=== PATIENT | female | born 1950 | race Two or more races ===

== ENCOUNTER 2024-08-28 11:00 | Outpatient (RCR) | payer MEDICARE, SELFPAY ==
--- NOTE | 2024-08-15 14:51 | PT.OIERPT ---
PT OP Initial Eval Patient Information Outpatient Physical Therapy Treatment Date: 08/15/24 Visit Reasons: Sciatica left side Medical Diagnosis: M54.32 Treatment Dx #1: Back Pain Treatment Dx #2: Left LE Pain Start of Care: 08/15/24 Date of Onset: 5 months ago Smoking Status Smoking Status: Never smoker Initial Assessment Subjective: Pt is a 74 y/o female comes into therapy reporting of back and left LE pain worsening 5 months ago. No imaging has been done thus far. 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 Pt has limitation with sitting, standing, chores, self care, cooking, cleaning, lifting, walk, and performing recreational activities. Pt ambulate with a cane or 4ww for safety. Objective: L/S AROM (in sitting): all motions are WFL except end range pain into extension Hip PROM: all motions are WFL except IR Hip MMTs: grossly 3/5 Special Test (+) slump Assessment: Pt demonstrate back pain with mobility deficits leading to difficulty with ADLs. Pt will attempt physical therapy if pain persist Pt will be refer back to provider for further consultation. Short Term and Velvet [facility] Goals 1) Decrease back pain to 2/10 in 6 wks to be able to sit and stand more than 30 mins 2) Increase L/S AROM WFL in 6 wks to be able to perform chores 3) Increase Hip MMTs grossly to 3+/5 in 6 wks to be able to walk more than 30 mins 4) Increase core strength WFL in 6 wks to be able to perform recreational activities 5) Indep with HEP Treatment Plan 1) Manual Therapy 2) Therapeutic Activities 3) Therapeutic Exercises 3) Modalities (ice, heat) Frequency and Duration: 2 x wk for 6 wks Certification Dates: 08/15/24 to 11/14/23 Procedure Charges OP PT Eval Mod Complex 30 minutes: Yes
--- NOTE | 2024-08-21 16:07 | PT.ODAYNRPT ---
PT Outpatient Daily Note OP Daily Note Outpatient Physical Therapy Treatment Date: 08/21/24 Visit Reasons: Sciatica left side Subjective: Pt reports back has been bothering her a little more these last two weeks. Objective: Please see flow sheet for ther ex list. Assessment: Pt instructed on posterior pelvic tilt, tactile cues and feedback given to achieve desired motion. Plan: Continue with POC. Length of Time (minutes) of Treatment: 30 Minutes Procedure Charges Therapeutic Exercise 30 minutes: Yes
--- NOTE | 2024-08-23 15:22 | PT.ODAYNRPT ---
PT Outpatient Daily Note OP Daily Note Outpatient Physical Therapy Treatment Date: 08/23/24 Visit Reasons: Sciatica left side Subjective: Pt's back still hurts and notice left LE pain consistent. Objective: Please see flow chart for list of ther ex performed Assessment: added heat with supine exercises which allow patient to tolerate exercises Plan: Continue with PT Length of Time (minutes) of Treatment: 30 Minutes Procedure Charges Therapeutic Exercise 30 minutes: Yes
--- NOTE | 2024-08-28 11:53 | PT.ODAYNRPT ---
PT Outpatient Daily Note OP Daily Note Outpatient Physical Therapy Treatment Date: 08/28/24 Visit Reasons: Sciatica left side Subjective: Pt's back was sore after last session. Pt feels a little better and able to help spouse out since he hurt his knee. Objective: Please see flow chart for list of ther ex performed Assessment: tolerate exercises with minimal pain; unable to stay on hotpack long due to intolerable to heat Plan: Continue with PT Length of Time (minutes) of Treatment: 30 Minutes Procedure Charges Therapeutic Exercise 30 minutes: Yes
== END 2024-09-05 23:59 | disposition home or self-care (01) ==
LOC: CPTX 11:00
PROVIDERS: PCP Family Medicine; Referring Provider Family Medicine; Visit Provider Family Medicine
DX: M54.42 Lumbago with sciatica, left side (principal); R26.2 Difficulty in walking, not elsewhere classified
CPT/HCPCS: 97110; 97162

== ENCOUNTER 2024-10-05 14:30 | Outpatient (RCR) | payer MEDICARE, SELFPAY ==
--- NOTE | 2024-09-07 14:31 | PT.ODAYNRPT ---
PT Outpatient Daily Note OP Daily Note Outpatient Physical Therapy Treatment Date: 09/07/24 Visit Reasons: Left sciatica nerve Subjective: Pt's back is doing okay. Pt mention her legs will give out intermittently which also relates to her medication Objective: Please see flow chart for list of ther ex perfomed Assessment: one LOB while ambulating to PB which did not require assistance. Pt demonstrate slow progress with physical therapy due to pain Plan: Continue with PT Length of Time (minutes) of Treatment: 30 Minutes Procedure Charges Therapeutic Exercise 30 minutes: Yes
--- NOTE | 2024-09-18 14:30 | PT.ODAYNRPT ---
PT Outpatient Daily Note OP Daily Note Outpatient Physical Therapy Treatment Date: 09/18/24 Visit Reasons: Left sciatica nerve Subjective: Pt's back is better with physical therapy. Pt wants to finish and complete physical therapy. Pt notice legs are stronger with walking now. Objective: Please see flow chart for list of ther ex performed Assessment: demonstrate improvement with overall l/s mobility allowing patient to stand and walk longer with less pain. Plan: Continue with PT Length of Time (minutes) of Treatment: 30 Minutes Procedure Charges Therapeutic Exercise 30 minutes: Yes
--- NOTE | 2024-09-26 14:37 | PT.ODAYNRPT ---
PT Outpatient Daily Note OP Daily Note Outpatient Physical Therapy Treatment Date: 09/26/24 Visit Reasons: Left sciatica nerve Subjective: Pt's back is better and does not have any concerns. Objective: Please see flow chart for list of ther ex performed Assessment: progressing with exercises able to performed extension biased and hip exercises with less pain. Plan: Continue with PT Length of Time (minutes) of Treatment: 30 Minutes Procedure Charges Therapeutic Exercise 30 minutes: Yes
--- NOTE | 2024-10-05 16:18 | PT.ODS1RPT ---
PT OP Progress/Discharge Note Date of Service: 10/05/24 Progress Note/DC Note Progress Note/Discharge Note: DC Note Patient Information Visit Reasons: Left sciatica nerve Medical Diagnosis: M54.32 Treatment Dx #1: Back Pain Service Continue Service or Discharge: Discharge Discharge Date: 10/05/24 Status Subjective: Pt's back feels better. Pt has been able to sit, stand, and perform chores longer with less pain. At this time Pt will like to be release from physical therapy. Objective: L/S AROM: all motions are WNL Hip PROM: all motions are WNL Hip MMTs: grossly 4-/5 Assessment: Pt demonstrate functional L/S mobility and strength allowing her to resume ADLs with less limitation. At this time Pt will be d/c from care due to meeting set goals in therapy. Pt was instructed on HEP last session and educated to continue exercises to maintain overall mobility. Pt performed all exercises safely, thank you for your referrals. Plan: D/C home with HEP and follow up with MD CATHERINE Procedure Charges Therapeutic Exercise 30 minutes: Yes
== END 2024-10-06 23:59 | disposition home or self-care (01) ==
LOC: CPTX 14:30
PROVIDERS: PCP Family Medicine; Referring Provider Family Medicine; Visit Provider Family Medicine
DX: M54.32 Sciatica, left side (principal); R26.2 Difficulty in walking, not elsewhere classified
CPT/HCPCS: 97110

== ENCOUNTER 2025-05-30 08:55 | Emergency (ER) | payer MEDICARE, SELFPAY ==
[2025-05-30 09:16] VITALS: BP 119/79; PULSE 82; RESP 18; TEMP 36.7; O2SAT 96
[2025-05-30 09:17] VITALS: BMI 37.9
--- NOTE | 2025-05-30 09:17 | PD.EDRME ---
Rapid Medical Screening Exam RME Arrival date/time: 05/30/25 08:55 74-year-old female presents to the emergency department today with complaints of dysuria and confusion Chief Complaint: General Adult/Misc Complain Vital signs: Vital Signs Temperature 98.1 F 05/30/25 09:16 Pulse Rate 82 05/30/25 09:16 Respiratory Rate 18 05/30/25 09:16 Blood Pressure 119/79 05/30/25 09:16 Pulse Oximetry (%) 96 05/30/25 09:16 Oxygen Delivery Method Room Air 05/30/25 09:16
[2025-05-30 10:37] LABS: Lactate (Lactic Acid) 1.9 mMol/L (0.4-2.0)
[2025-05-30 10:43] LABS: Basophils # (Auto) 0.0 Thou/mm3 (0.0-0.2); Basophils % (Auto) 0 % (0-2.5); Eosinophils # (Auto) 0.0 Thou/mm3 (0.0-0.5); Eosinophils % (Auto) 0 % (0-10); Hematocrit 42.9 % (36.0-46.0); Hemoglobin 14.2 g/dL (12.0-16.0); Immature Granulocytes Auto 0.02 Thou/mm3 (0.00-0.00); Lymphocytes # (Auto) 1.9 Thou/mm3 (1.0-4.8); Lymphocytes % (Auto) 24 % (10-50); Mean Corpuscular HGB Conc 33.1 g/dl (31.0-37.0); Mean Corpuscular Hemoglobin 32.2 pg (25.0-35.0); Mean Corpuscular Volume 97 fL (80-100); Monocytes # (Auto) 0.5 Thou/mm3 (0.0-0.8); Monocytes % (Auto) 7 % (0-12); Neutrophils # (Auto) 5.2 Thou/mm3 (1.8-7.7); Neutrophils % (Auto) 68 % (37-80); Nucleated Red Blood Cell # 0.00 Thou/mm3 (0.00-0.00); Nucleated Red Blood Cell % 0 /100 WBC (0); Platelet Count 142 Thou/mm3 (140-440); RDW Standard Deviation 46.5 fL (36.4-46.3); Red Blood Count 4.41 Miln/mm3 (4.00-5.20); White Blood Count 7.7 Thou/mm3 (3.6-11.0)
[2025-05-30 11:11] LABS: Alanine Aminotransferase 23 U/L (10-49); Albumin, Serum 4.7 gm/dL (3.4-4.8); Albumin/Globulin Ratio 1.6 (1.2-2.2); Alkaline Phosphatase 90 U/L (46-116); Anion Gap 9 (7-16); Aspartate Amino Transferase 31 U/L (0-34); BUN/Creatinine Ratio 13 Ratio (12-20); Bilirubin,Total 2.2 mg/dL (0.3-1.2); Blood Urea Nitrogen 8 mg/dL (9-23); Calcium 9.6 mg/dL (8.3-10.6); Calcium (Corrected) 9.6 mg/dL (8.5-10.1); Carbon Dioxide 28.8 mMol/L (20.0-31.0); Chloride 101 mMol/L (98-107); Creatinine (Component) 0.6 mg/dL (0.6-1.3); Estimated Creatinine Clearance 89.9 mL/min (>60); Globulin 3.0 gm/dL (2.3-3.5); Glucose 120 mg/dL (74-106); Osmolality,Calculated 276 (275-295); Potassium 3.4 mMol/L (3.4-5.1); Procalcitonin 0.06 ng/ml (0.0-0.49); Sodium 139 mMol/L (136-145); Total Protein 7.7 gm/dL (5.7-8.2); eGFR > 60 See Note
[2025-05-30 12:58] LABS: Collection Type, Urine Clean Catch
[2025-05-30 13:45] LABS: Bacteria,Urine 1+; Bilirubin,Urine Negative (Negative); Blood,Urine 2+ (Negative); Color,Urine Drk-Yellow (Lt Yel-Yel); Glucose, Urine Negative (Negative); Ketones,Urine Negative (Negative); Leukocyte Esterase,Urine Positive (Negative); Nitrite,Urine Positive (Negative); PH,Urine 6.5 (5.0-7.0); Protein,Urine 1+ (Neg - Trace); RBC,Urine 8 /hpf (0-3); Specific Gravity,Urine 1.017 (1.001-1.035); Squamous Epithelial Cell,Urine 2 /hpf (0-5); Urobilinogen,Urine 2.0 mg/dL (0.0-1.0); WBC,Urine 262 /hpf (0-5)
[2025-05-30 13:51] LABS: Clarity,Urine Hazy (Clear/Hazy)
--- NOTE | 2025-05-30 14:21 | PD.EDADULT ---
ED General RME/HPI General Chief complaint: General Adult/Misc Complain Stated complaint: UTI, CONFUSED, INCONTINENCE Time Seen by Provider: 05/30/25 13:54 Arrival date/time: 05/30/25 08:55 RME / HPI RME / HPI narrative: 74-year-old female patient with significant history of urinary incontinence, was brought in by family for evaluation regarding UTI symptoms. Patient is having dysuria, frequency, for several days, getting worse. Last night family is worried because patient had episode of confusion. There was no incidence of fall. No fever noted no vomiting noted. Today family did not notice any confusion on my initial evaluation patient was alert and oriented, answers question appropriately and able to make good decisions. Patient was not noted to be febrile no tachycardia noted. Patient is pending to be seen by urologist in [place]. She had a scheduled CT scan of the abdomen and pelvis in 2 days outpatient. Currently she is not having any abdominal pain or flank pain. Related Data Home Medications ?Medication ?Instructions ?Recorded ?Confirmed ibuprofen 800 mg tablet 800 mg PO Q8HR #0 tabs 11/06/14 10/20/19 lorazepam 0.5 mg tablet 0.5 mg PO BIDPRN PRN Anxiety #0 11/06/14 10/20/19 tabs oxybutynin chloride 5 mg tablet 5 mg PO BID #0 tabs 08/26/15 10/20/19 sertraline 50 mg tablet 50 mg PO QDAY 08/21/18 10/20/19 Previous Rx's ?Medication ?Instructions ?Recorded tramadol 50 mg tablet 50 mg PO Q6H PRN pain #30 tabs 10/19/19 cefdinir 300 mg capsule 300 mg PO BID #14 caps 05/30/25 Allergies Allergy/AdvReac Type Severity Reaction Status Date / Time levofloxacin Allergy Intermediate ITCHY Verified 05/30/25 09:01 nitrofurantoin (From Allergy Mild ITCHY Verified 05/30/25 09:01 Macrobid) Review of Systems Review of Systems Narrative Review of Systems: Review of system reviewed and within normal limits except mentioned in HPI ED Exam Narrative Physical exam: VITAL SIGNS: Reviewed. GENERAL APPEARANCE: Alert and interactive, follows commands, no acute distress, HEAD AND FACE: Non-traumatic. ENT: PERRL, pink conjunctivitis, eyelid no trauma, Mucous membrane moist. NECK: Supple, nontender, no nuchal rigidity. CHEST: No tenderness, no crepitus, no paradoxical movement, no retractions. LUNGS: Clear, well ventilated, symmetric, no rales, no wheezing, no ronchi, no stridor, good breath sounds bilaterally. HEART: Regular rate, regular rhythm, no murmur, no gallops. ABDOMEN: Soft, positive bowel sounds, nondistended, no guarding, nontender, no rebound, no masses, RECTAL: Deferred. GENITAL: Deferred. NEUROLOGICAL: Gross motor function intact sensory function intact, Appropriate for age. MUSCULOSKELETAL: low back nontender, full range of motion. EXTREMITIES: Nontender, full range of motion. SKIN: Color pink, dry, no rash, no lacerations, no abrasions, no contusions. LYMPHATICS: Deferred. Course Quality Measures none Orders Category Date Time Status Blood Culture (Lab) Stat Lab 05/30/25 10:00 Received CBC Stat Lab 05/30/25 10:12 Completed Comprehensive Metabolic Panel Stat Lab 05/30/25 10:12 Completed Lactate (Lactic Acid) Stat Lab 05/30/25 10:12 Completed Procalcitonin Stat Lab 05/30/25 10:12 Completed Urinalysis Stat Lab 05/30/25 12:50 Completed Urine Culture Stat Lab 05/30/25 12:50 Received cefTRIAXone [Rocephin] 1,000 mg Med 05/30/25 14:21 Discontinued Lidocaine 1% 20 ml [Xylocaine 1% 20 ML] 2.1 ml IM X1 Vital Signs Vital signs: Vital Signs Temperature 98.1 F 05/30/25 09:16 Pulse Rate 82 05/30/25 09:16 Respiratory Rate 18 05/30/25 09:16 Blood Pressure 119/79 05/30/25 09:16 Pulse Oximetry (%) 96 05/30/25 09:16 Oxygen Delivery Method Room Air 05/30/25 09:16 Discharge Plan Plan Patient Disposition: HOME (Self Care) Discharge Disposition comment: stable Prescriptions/Referrals Prescriptions/Med Rec: New cefdinir 300 mg capsule 300 mg PO BID Qty: 14 0RF No Action ibuprofen 800 MG tablet 800 mg PO Q8HR Qty: 0 lorazepam 0.5 MG tablet 0.5 mg PO BIDPRN PRN (Reason: Anxiety) Qty: 0 oxybutynin chloride 5 MG tablet 5 mg PO BID Qty: 0 tramadol 50 mg tablet 50 mg PO Q6H PRN (Reason: pain) Qty: 30 0RF sertraline 50 mg Tablet 50 mg PO QDAY Referrals: Spike Flanagan MD [Primary Care Provider, Family Practice] - In 1 week Problem List Clinical Impression: Urinary tract infection Patient/Caregiver Discharge Instructions Discharge Activity: activity as tolerated Education Materials: Understanding Urinary Tract ... Additional Instructions: Thank you for the opportunity for serving you today. You are stable for discharged . You are advised to: Follow-up with your PCP in 1 to 2 days Return to ED for worsening of symptoms, fever, vomiting, confusion Increase oral fluids Take medication as prescribed Please follow-up with your urologist as scheduled. Print Language: Swedish Stand Alone Forms: Ellie Award Info., Patient Portal Info Letter [facility] Supervising Physician [facility] Supervising Physician: MD Deep MDM Narrative MDM hospital course (for use when minimal MDM required): 74-year-old female patient with significant history of urinary incontinence, was brought in by family for evaluation regarding UTI symptoms. Patient is having dysuria, frequency, for several days, getting worse. Last night family is worried because patient had episode of confusion. There was no incidence of fall. No fever noted no vomiting noted. Today family did not notice any confusion on my initial evaluation patient was alert and oriented, answers question appropriately and able to make good decisions. Patient was not noted to be febrile no tachycardia noted. Patient is pending to be seen by urologist in [place]. She had a scheduled CT scan of the abdomen and pelvis in 2 days outpatient. Currently she is not having any abdominal pain or flank pain. Laboratory workup discussed with the patient, I did not notice any leukocytosis, CMP unremarkable. Except for total bili of 2.2. Patient is not having any abdominal pain. Urinalysis significant for UTI. Patient plan of care discussed with family, and told them that I am going to order for CT scan of the abdomen pelvis and give antibiotic. Patient family told me they opted for IM antibiotic and be discharged on prescription for antibiotic. She had an appointment with PCP in [address] scan of the abdomen fold pelvis in 2 days. Patient is ambulatory. She is alert and oriented x 3 prior to discharge. I did not notice any sign of confusion in my evaluation. Patient appears nontoxic and hemodynamically stable .Decision to discharge the patient. The patient/family was given an opportunity to ask questions and understood their discharge instructions. Discharge instructions specifically included follow up provider and time frame, current and/or new medications and possible side effects, indications for sooner follow up or return to the emergency department, and the expected course of current diagnosis. Patient reports feeling better as well and giving evidence of significant clinical improvement, I believe patient is now a candidate for discharge. Medication Administration(s) Medication Administration History Discontinued Medications Ceftriaxone Sodium 1,000 mg/ (Lidocaine HCl 2.1 ml) 0 mg IM X1 ONE Stop: 05/30/25 14:22
[2025-05-30] MEDS: cefTRIAXone 1,000 MG, LIDOCAINE 1% 20 ML 2.1 ML IM (14:42)
[2025-05-30 14:44] VITALS: PULSE 78
== END 2025-05-30 14:45 | disposition home or self-care (01) ==
PROVIDERS: Nurse Practitioner Primary Care; Emergency Provider Emergency Medicine; PCP Family Medicine
DX: N39.0 Urinary tract infection, site not specified (principal)
CPT/HCPCS: 36415; 80053; 81001; 83605; 84145; 85025; 87040; 87077; 87086; 87186; 96372; 99283; J0696; J3490